=== PATIENT | male | born 1990 | race Caucasian/White ===

== ENCOUNTER 2018-07-16 14:41 | Observation (INO) | payer BC ==
--- NOTE | 2018-07-16 15:29 | Emergency Department Record ---
History of Present Illness - General Chief Complaint: Seizures Stated Complaint: SEIZURE Time Seen by Provider: 07/16/18 15:07 Source: Patient Mode of Arrival: Ambulatory Limitations: No limitations - History of Present Illness Initial Comments: The patient is here due to possibly having a seizure about an hour ago while playing video games. He was found by his sister making gurgling noises and drooling and with a blank stare in his video chair. He did not fall or injure himself. The patient also did not bite his tongue or wet himself. The patient then slowly became more conscious and when more alert had body aching and a frontal VÁZQUEZ. He has had similar episodes in the past with the last being January of 2015. His last episode was also while playing a video game. He is not on any medicine for it. Presently he denies any VÁZQUEZ or body aching. MD Complaint: Possible seizure Onset/Timin -: Minutes(s) Witnessed: Yes - by bystander Seizure History: Known seizure disorder Place: Home Associated Symptoms: Diaphoresis Treatments Prior to Arrival: None - Related Data Home Medications Medication Instructions Recorded Confirmed Last Taken No Home Med [NO HOME MEDS] 07/16/18 07/16/18 Unknown Allergies Allergy/AdvReac Type Severity Reaction Status Date / Time No Known Drug Allergies Allergy Verified 07/16/18 16:21 Travel Screening - Travel/Exposure Within Last 30 Days Have you traveled within the last 30 days?: No - Travel/Exposure Within Last Year Have you traveled outside the [place] in the last year?: No - Additonal Travel Details Have you been exposed to anyone with a communicable illness?: No - Travel Symptoms Symptom Screening: None Review of Systems Constitutional: Denies: Chills, Fever Eyes: Denies: Eye discharge ENT: Denies: Congestion Respiratory: Denies: Cough, Dyspnea Past Medical History - SOCIAL HISTORY Smoking Status: Never smoker Alcohol Use: Rare Drug Use: Rare - RESPIRATORY Hx Respiratory Disorders: No - CARDIOVASCULAR Hx Cardio Disorders: No - NEURO Hx Neuro Disorders: Yes Hx Seizures: Yes - GI Hx GI Disorders: No - Hx Genitourinary Disorders: No - ENDOCRINE Hx Endocrine Disorders: No - MUSCULOSKELETAL Hx Musculoskeletal Disorders: No - PSYCH Hx Psych Problems: Yes Hx Anxiety: Yes - HEMATOLOGY/ONCOLOGY Hx Hematology/Oncology Disorders: No Family Medical History Any Significant Family History?: No Physical Exam - General General Appearance: Alert, Oriented x3, Cooperative, No acute distress - Head Head exam: Atraumatic, Normocephalic, Normal inspection - Eye Eye exam: Normal appearance, PERRL, EOMI. negative: Conjunctival injection - ENT Throat exam: Normal inspection. negative: Tonsillar erythema, Tonsillar exudate - Neck Neck exam: Normal inspection, Full ROM. negative: Tenderness - Respiratory Respiratory exam: Normal lung sounds bilaterally. negative: Respiratory distress - Cardiovascular Cardiovascular Exam: Regular rate, Normal rhythm, Normal heart sounds - GI/Abdominal GI/Abdominal exam: Soft, Normal bowel sounds. negative: Tenderness - Extremities Extremities exam: Normal inspection, Full ROM, Normal capillary refill. negative: Tenderness - Back Back exam: Reports: Normal inspection - Neurological Neurological exam: Alert, Normal gait, Oriented X3. negative: Abnormal gait, Altered, Motor sensory deficit - Psychiatric Psychiatric exam: negative: Anxious, Depressed Course Vital Signs 07/16/18 14:47 Temperature 99.0 F Pulse Rate 106 H Respiratory 18 Rate Blood Pressure 151/104 Pulse Ox 97 - Reevaluation(s) Reevaluation #1: The patient is feeling well at this time. I did discuss the test results with him and the need for a short stay admission to [facility] for observation and he did agree. I then did discuss the case with Ann ([employer]) and she does accept the admission for Dr. Ricardo. 07/16/18 17:05 Medical Decision Making - Data Complexity MDM Data: Labs Ordered and/or Reviewed, X-Ray Ordered and/or Reviewed, EKG Ordered and/or Reviewed - Lab Data Result diagrams: 07/16/18 15:15 07/16/18 15:15 - EKG Data -: EKG Interpreted by Me (NSR at 91, nonspecific T changes inferior leads, borderline ST changes V3-6) - Radiology Data Radiology results: Report reviewed (Head CT: neg for any acute changes.) Disposition Disposition: Admit Clinical Impression: Seizure disorder Disposition: Still a Patient at [facility] Decision to Admit: Admit from ER Decision to Admit Date: 07/16/18 Decision to Admit Time: 17:06 Accepting Physician: Haleigh Time Discussed w/Accepting Physician: 17:06 Condition: (2) Stable Forms: Patient Portal Access Time of Disposition: 17:06 Quality - Quality Measures Quality Measures: N/A - Blood Pressure Screening View Details: Yes Does Patient Have Any of the Following: No Blood Pressure Classification: Hypertensive Reading Systolic Measurement: 151 Diastolic Measurement: 104 Screening for High Blood Pressure: < First Hypertensive BP, F/U Documented > [ G8950] First Hypertensive Follow-up Interventions: Referral to alternative/primary care provider.
[2018-07-16 15:35] LABS: BASO % 0.5 % (0-6); EOS % 9.8 % (0-6); GRAN % 55.8 % (47-80); HEMATOCRIT 48.9 % (42.0-52.0); HEMOGLOBIN 16.3 gm/dl (14.0-18.0); LYMPH % 24.8 % (16-45); MEAN CELL VOLUME 89.6 fl (81-97); MEAN CORPUSCULAR HEMOGLOBIN 29.9 pg (27-33); MEAN CORPUSCULAR HGB CONC 33.3 g/dl (32-36); MEAN PLATELET VOLUME 10.6 fl (7.4-10.4); MONO % 9.1 % (0-9); PLATELET COUNT 287 K/uL (130-400); RED BLOOD COUNT 5.46 M/uL (4.40-5.70); RED CELL DISTRIBUTION WIDTH 14.5 % (11.5-14.5); WHITE BLOOD COUNT W/O DIFF 9.5 K/uL (4.2-12.2)
[2018-07-16 15:54] LABS: BLOOD UREA NITROGEN 19 mg/dL (6-20); CREATININE 1.2 mg/dL (0.7-1.2); EST GLOMERULAR FILTRATION RATE > 60 mL/min
[2018-07-16 15:54] LABS: AMPHETAMINE SCREEN URINE NOT DETECTED; BARBITURATE SCREEN URINE NOT DETECTED; BENZODIAZEPINE SCREEN URINE NOT DETECTED; COCAINE SCREEN URINE NOT DETECTED; METHADONE SCREEN URINE NOT DETECTED; METHAMPHETAMINE SCREEN NOT DETECTED; OPIATE SCREEN URINE NOT DETECTED; OXYCODONE SCREEN URINE NOT DETECTED; PHENCYCLIDINE SCREEN URINE NOT DETECTED; PROPOXYPHENE SCREEN URINE NOT DETECTED; THC SCREEN URINE NOT DETECTED; TRICYCLIC ANTIDEPRESSANT SCRN NOT DETECTED
[2018-07-16 15:55] LABS: TOTAL PROTEIN 7.2 g/dL (6.6-8.7)
[2018-07-16 15:57] LABS: GLUCOSE,RANDOM 122 mg/dL (74-109)
[2018-07-16 16:00] LABS: ALB/GLOB RATIO 1.3 (1.1-1.8); ALKALINE PHOSPHATASE 61 U/L (40-129); ALT/SGPT 24 U/L (<41); AST/SGOT 26 U/L (10.0-50.0)
[2018-07-16] MEDS ORDERED: KETOROLAC 30 MG/ML VIAL IVP ONE (16:20)
[2018-07-16] MEDS ORDERED: 0.9 % SODIUM CHLORIDE 1,000 ML BAG IV ONE (16:20)
[2018-07-16] MEDS ORDERED: ACETAMINOPHEN 325 MG TAB PO PRN (17:25)
[2018-07-17 06:37] LABS: HEMATOCRIT 44.2 % (42.0-52.0); HEMOGLOBIN 14.7 gm/dl (14.0-18.0); MEAN CELL VOLUME 90.8 fl (81-97); MEAN CORPUSCULAR HEMOGLOBIN 30.2 pg (27-33); MEAN CORPUSCULAR HGB CONC 33.3 g/dl (32-36); MEAN PLATELET VOLUME 10.3 fl (7.4-10.4); PLATELET COUNT 236 K/uL (130-400); RED BLOOD COUNT 4.87 M/uL (4.40-5.70); RED CELL DISTRIBUTION WIDTH 14.6 % (11.5-14.5); WHITE BLOOD COUNT W/O DIFF 9.7 K/uL (4.2-12.2)
[2018-07-17 06:53] LABS: ALB/GLOB RATIO 1.3 (1.1-1.8); ALBUMIN 3.3 g/dL (4.0-5.0); ALKALINE PHOSPHATASE 51 U/L (40-129); ALT/SGPT 20 U/L (<41); AST/SGOT 25 U/L (10.0-50.0); BLOOD UREA NITROGEN 18 mg/dL (6-20); EST GLOMERULAR FILTRATION RATE > 60 mL/min; GLUCOSE,RANDOM 93 mg/dL (74-109); TOTAL PROTEIN 5.9 g/dL (6.6-8.7)
[2018-07-17 07:04] LABS: THYROID STIMULATING HORMONE 1.31 uIU/mL (0.270-4.20)
--- NOTE | 2018-07-17 07:42 | CT SCAN REPORT ---
EXAM: CT SCAN OF THE HEAD HISTORY: PATIENT HAS SEIZURES. TECHNIQUE: Serial axial CT scan of the head was performed at 2.5 mm intervals from the base of the skull to the apex without the use of intravenous contrast. No comparison CT's are available. FINDINGS: The ventricles, cisterns, and sulci appear within normal limits for size, shape and attenuation. There is no mass or mass effect. There is no intra or extraaxial fluid collection to suggest bleeding. The murillo and white differentiation appear within normal limits. Bone windows demonstrate no CT evidence of a fracture or dislocation of the skull. IMPRESSION: NO CT EVIDENCE OF AN ACUTE INTRACRANIAL PROCESS. JOB NUMBER: [id number] MTDD
--- NOTE | 2018-07-17 09:26 | History & Physical ---
History of Present Illness - Date of Service Date of Service for History & Physical: 07/17/18 - History of Present Illness Admitting Diagnosis: 1. Acute Seizure disorder History of Present Illness: Mr. Orlando is a 27 year-old male who presented to the ED yesterday due to possibly having a seizure about an hour previous while playing video games. He was found by his sister making gurgling noises and drooling and with a blank stare in his video game chair. He did not fall or injure himself. The patient also did not bite his tongue or wet himself. The patient then slowly became more conscious and when more alert had body aching and a frontal VÁZQUEZ. He has had a similar episode in the past- January of 2015. His last episode was also while playing a video game. He is not on any medicine for it. Presently he denies any VÁZQUEZ or body aching. His health history is otherwise negative. He does not have a PCP. In the ED, his vitals were: BP 159/101, HR 83, RR 16, T 98.3F, and 96% on room air. His EKG showed NSR at 91, nonspecific T changes inferior leads, borderline ST changes V3-6. Labs unremarkable. Negative head CT. He was admitted for observation, neuro checks q4h. 07/17/18: 0600: Pt. is presently resting in bed. He denies any pain/headache. His am labs are pending. Vitals have remained stable, BP slightly elevated, last BP 142/86 1500: Pt's BP remains elevated. Chest xray negative for acute process and cardiomegaly. Labs ordered to assess underlying cause of hypertension (hx of rhabdo with previous hospitalization from seizure in January 2015). Travel Screening - Travel/Exposure Within Last 30 Days Have you traveled within the last 30 days?: No - Travel/Exposure Within Last Year Have you traveled outside the [place] in the last year?: No - Additonal Travel Details Have you been exposed to anyone with a communicable illness?: No - Travel Symptoms Symptom Screening: None Review of Systems Constitutional: Denies: Chills, Fever Eyes: Denies: Eye discharge ENT: Denies: Congestion Respiratory: Denies: Cough, Dyspnea Past Medical History - SOCIAL HISTORY Smoking Status: Never smoker Alcohol Use: Rare Drug Use: None - RESPIRATORY Hx Respiratory Disorders: No - CARDIOVASCULAR Hx Cardio Disorders: No - NEURO Hx Neuro Disorders: Yes Hx Seizures: Yes - GI Hx GI Disorders: No - Hx Genitourinary Disorders: No - ENDOCRINE Hx Endocrine Disorders: No - MUSCULOSKELETAL Hx Musculoskeletal Disorders: No - PSYCH Hx Psych Problems: Yes Hx Anxiety: Yes - HEMATOLOGY/ONCOLOGY Hx Hematology/Oncology Disorders: No Family Medical History Any Significant Family History?: No Hx Anxiety: Grandparents Hx Cancer: Grandparents Hx Depression: Grandparents Hx Diabetes: Grandparents Hx HTN: Mother Hx Resp Disorders: Mother Hx Stroke: Grandparents H&P Meds/Allergies - Allergies Allergies: Allergies Allergy/AdvReac Type Severity Reaction Status Date / Time No Known Drug Allergies Allergy Verified 07/16/18 16:21 - Home Medications Home Medications Medication Instructions Recorded Confirmed Last Taken No Home Med [NO HOME MEDS] 07/16/18 07/16/18 Unknown - Active Medications Active Medications: Current Medications Acetaminophen (Tylenol 325mg) 650 mg PO Q4H PRN PRN Reason: PAIN - MILD(1-4)/FEVER Physical Exam - Vital Signs Vital Signs: Vital Signs - Last 24 Hrs Temp Pulse Pulse Pulse Resp BP BP 07/17/18 08:15 70 18 07/16/18 20:00 97.4 F L 73 18 142/86 07/16/18 18:33 83 16 07/16/18 17:45 98.3 F 83 16 159/101 07/16/18 14:47 99.0 F 106 H 18 151/104 Pulse Ox 07/17/18 08:15 07/16/18 20:00 97 07/16/18 18:33 07/16/18 17:45 96 07/16/18 14:47 97 - General General Appearance: Alert, Oriented x3, Cooperative, No acute distress Limitations: No limitations - Head Head exam: Atraumatic, Normocephalic, Normal inspection - Eye Eye exam: Normal appearance, PERRL, EOMI. negative: Conjunctival injection - ENT Throat exam: Normal inspection. negative: Tonsillar erythema, Tonsillar exudate - Neck Neck exam: Normal inspection, Full ROM. negative: Tenderness - Respiratory Respiratory exam: Normal lung sounds bilaterally. negative: Respiratory distress - Cardiovascular Cardiovascular Exam: Regular rate, Normal rhythm, Normal heart sounds - GI/Abdominal GI/Abdominal exam: Soft, Normal bowel sounds. negative: Tenderness - Extremities Extremities exam: Normal inspection, Full ROM, Normal capillary refill. negative: Tenderness - Back Back exam: Reports: Normal inspection - Neurological Neurological exam: Alert, Normal gait, Oriented X3. negative: Abnormal gait, Altered, Motor sensory deficit - Psychiatric Psychiatric exam: negative: Anxious, Depressed Results - Labs Result Diagrams: 07/17/18 06:09 07/17/18 06:09 Labs Last 24 Hours: Laboratory Results - last 24 hr 07/16/18 07/16/18 07/16/18 15:15 15:15 15:27 WBC 9.5 RBC 5.46 Hgb 16.3 Hct 48.9 MCV 89.6 MCH 29.9 MCHC 33.3 RDW 14.5 Plt Count 287 MPV 10.6 H Gran % 55.8 Neutrophils % Band Neutrophils % Lymphocytes % 24.8 Monocytes % 9.1 H Eosinophils % 9.8 H Basophils % 0.5 Lymphocytes Monocytes Basophils Eosinophil Count Sodium 139 Potassium 3.8 Chloride 98 Carbon Dioxide 22.0 Anion Gap 19.0 H BUN 19 Creatinine 1.2 Estimated GFR > 60 Random Glucose 122 H Hemoglobin A1c Calcium 10.0 Total Bilirubin 0.50 AST 26 ALT 24 Alkaline Phosphatase 61 Total Protein 7.2 Albumin 4.0 Globulin 3.2 Albumin/Globulin Ratio 1.3 TSH Urine Opiates Screen Not detected Ur Oxycodone Screen Not detected Urine Methadone Screen Not detected Ur Propoxyphene Screen Not detected Ur Barbituates Screen Not detected Ur Tricyclics Screen Not detected Ur Phencyclidine Scrn Not detected Ur Amphetamine Screen Not detected U Methamphetamines Scrn Not detected U Benzodiazepines Scrn Not detected Urine Cocaine Screen Not detected Urine Cannabis Screen Not detected 07/17/18 07/17/18 07/17/18 06:09 06:09 06:09 WBC 9.7 RBC 4.87 Hgb 14.7 Hct 44.2 MCV 90.8 MCH 30.2 MCHC 33.3 RDW 14.6 H Plt Count 236 MPV 10.3 Gran % Neutrophils % 55.0 Band Neutrophils % 0.0 Lymphocytes % Monocytes % Eosinophils % Not Reportable Basophils % Not Reportable Lymphocytes 23.0 Monocytes 11.0 H Basophils 0.0 Eosinophil Count 11.0 H Sodium 142 Potassium 3.8 Chloride 105 Carbon Dioxide 26.0 Anion Gap 11.0 BUN 18 Creatinine 1.0 Estimated GFR > 60 Random Glucose 93 Hemoglobin A1c 5.10 Calcium 9.2 Total Bilirubin 0.30 AST 25 ALT 20 Alkaline Phosphatase 51 Total Protein 5.9 L Albumin 3.3 L Globulin 2.6 Albumin/Globulin Ratio 1.3 TSH 1.31 Urine Opiates Screen Ur Oxycodone Screen Urine Methadone Screen Ur Propoxyphene Screen Ur Barbituates Screen Ur Tricyclics Screen Ur Phencyclidine Scrn Ur Amphetamine Screen U Methamphetamines Scrn U Benzodiazepines Scrn Urine Cocaine Screen Urine Cannabis Screen VTE H&P Assessment - Risk for VTE Risk for VTE: Yes Risk Level: Very Low Risk Assessment Date: 07/17/18 Risk Assessment Time: 09:25 VTE Orders Placed or Will Be Placed: No VTE Reason for No Prophylaxis: Not Indicated Plan - Detailed Diagnosis and Plan (1) Seizure disorder Current Visit: Yes Status: Acute Base Code: G40.909 - EPILEPSY, UNSP, NOT INTRACTABLE, WITHOUT STATUS EPILEPTICUS Comment: 07/17/18 -Unwitnessed seizure on 07/16/18, last seizure was January 2015 (admitted at [facility] and did not f/u with neurology) -Will continue neurochecks q4h, seizure precautions, labs ordered to assess for underlying cause of seizures and hypertension (2) Hypertension Current Visit: Yes Status: Acute Base Code: I10 - ESSENTIAL (PRIMARY) HYPERTENSION Comment: 07/17/18: -BP on admission 151/104, continues to be elevated (was 178/108 at 1200) -Pt. denies chest pain and headache -Labs ordered to assess for underlying cause, CXR negative -NSR on tele (3) Full code status Current Visit: Yes Status: Acute Base Code: Z78.9 - OTHER SPECIFIED HEALTH STATUS Comment: 07/17/18: -Pt. is a full code
[2018-07-17 15:30] LABS: CKMB 2.6 ng/mL (<6.73)
--- NOTE | 2018-07-17 17:42 | Discharge Summary ---
Providers Discharge Summary Date: 07/17/18 Date of admission: 07/16/18 17:18 Expected Date of Discharge: 07/17/18 Attending physician: EAGLE BRASWELL Primary care physician: FLOR AGUILAR M.D. Physical Exam - Vital Signs Vital Signs: Vital Signs - Last 24 Hrs Temp Pulse Pulse Resp BP Pulse Ox 07/17/18 15:17 98.1 F 77 18 154/105 100 07/17/18 12:00 97.8 F 66 18 178/108 96 07/17/18 08:15 70 18 07/17/18 08:00 98.5 F 67 18 150/96 07/16/18 20:00 97.4 F L 73 18 142/86 97 07/16/18 18:33 83 16 07/16/18 17:45 98.3 F 83 16 159/101 96 - General General Appearance: Alert, Oriented x3, Cooperative, No acute distress Limitations: No limitations - Head Head exam: Atraumatic, Normocephalic, Normal inspection - Eye Eye exam: Normal appearance, PERRL, EOMI. negative: Conjunctival injection - ENT Throat exam: Normal inspection. negative: Tonsillar erythema, Tonsillar exudate - Neck Neck exam: Normal inspection, Full ROM. negative: Tenderness - Respiratory Respiratory exam: Normal lung sounds bilaterally. negative: Respiratory distress - Cardiovascular Cardiovascular Exam: Regular rate, Normal rhythm, Normal heart sounds - GI/Abdominal GI/Abdominal exam: Soft, Normal bowel sounds. negative: Tenderness - Extremities Extremities exam: Normal inspection, Full ROM, Normal capillary refill. negative: Tenderness - Back Back exam: Reports: Normal inspection - Neurological Neurological exam: Alert, Normal gait, Oriented X3. negative: Abnormal gait, Altered, Motor sensory deficit - Psychiatric Psychiatric exam: negative: Anxious, Depressed Hospitalization - Hospitalization Admission Diagnosis: 1. Acute Seizure disorder - Problem List/Discharge Diagnosis (1) Seizure disorder Status: Acute Base Code: G40.909 - EPILEPSY, UNSP, NOT INTRACTABLE, WITHOUT STATUS EPILEPTICUS Comment: 07/17/18 -Unwitnessed seizure on 07/16/18, last seizure was January 2015 (admitted at [facility] and did not f/u with neurology) -labs stable -Will plan to d/c and f/u with neurology (2) Hypertension Status: Acute Base Code: I10 - ESSENTIAL (PRIMARY) HYPERTENSION Comment: : -BP on admission 151/104, continues to be elevated (was 178/108 at 1200) -Pt. denies chest pain and headache -Labs ordered to assess for underlying cause, CXR negative -Labs stable -NSR on tele (3) Full code status Status: Acute Base Code: Z78.9 - OTHER SPECIFIED HEALTH STATUS Comment: : -Pt. is a full code - Hospitalization Course Disposition: Home, Self-Care Hospital Course: Mr. Orlando is a 27 year-old male who presented to the ED yesterday due to possibly having a seizure about an hour previous while playing video games. He was found by his sister making gurgling noises and drooling and with a blank stare in his video game chair. He did not fall or injure himself. The patient also did not bite his tongue or wet himself. The patient then slowly became more conscious and when more alert had body aching and a frontal VÁZQUEZ. He has had a similar episode in the past- January of 2015. His last episode was also while playing a video game. He is not on any medicine for it. Presently he denies any VÁZQUEZ or body aching. His health history is otherwise negative. He does not have a PCP. In the ED, his vitals were: BP 159/101, HR 83, RR 16, T 98.3F, and 96% on room air. His EKG showed NSR at 91, nonspecific T changes inferior leads, borderline ST changes V3-6. Labs unremarkable. Negative head CT. He was admitted for observation, neuro checks q4h. 07/17/18: 0600: Pt. is presently resting in bed. He denies any pain/headache. His am labs are pending. Vitals have remained stable, BP slightly elevated, last BP 142/86 1500: Pt's BP remains elevated. Chest xray negative for acute process and cardiomegaly. Labs ordered to assess underlying cause of hypertension (hx of rhabdo with previous hospitalization from seizure in January 2015). ESR-3 CK-MB- 2.6 Myoglobin- 115 Creatinine kinase- 527 lactic acid- 1.0 procalcitonin 0.02 prolactin 5.2 ACTH- pending Pt. was informed of lab results. Explained that elevated creat kinase and myoglobin are likely result of muscle natalie with seizure and enzymes will clear with increased fluid intake (kindney function is normal). Pt. had hx of rhabdo with previous seizure hospitalization at [facility] in 2014. I spoke to Dr. Aguilar regarding treatment plan, will plan to discharge home today. Pt. was educated on his activity restrictions- no driving until seen by neurology. No video games, no swimming, no climbing on high surfaces. PCP: Dr. 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 EKG NOW Abnormal Labs: Abnormal Lab Results 07/16/18 07/16/18 07/17/18 Range/Units 15:15 15:15 06:09 RDW 14.6 H (11.5-14.5) % MPV 10.6 H (7.4-10.4) fl Monocytes % 9.1 H (0-9) % Eosinophils % 9.8 H (0-6) % Monocytes 11.0 H (0-9) % Eosinophil Count 11.0 H (0-6) % Anion Gap 19.0 H (7-16) Random Glucose 122 H (74-109) mg/dL Creatine Kinase (39-308) U/L Myoglobin (28-72) ng/mL Total Protein (6.6-8.7) g/dL Albumin (4.0-5.0) g/dL 07/17/18 07/17/18 07/17/18 Range/Units 06:09 14:34 14:34 RDW (11.5-14.5) % MPV (7.4-10.4) fl Monocytes % (0-9) % Eosinophils % (0-6) % Monocytes (0-9) % Eosinophil Count (0-6) % Anion Gap (7-16) Random Glucose (74-109) mg/dL Creatine Kinase 527 H (39-308) U/L Myoglobin 115.3 H (28-72) ng/mL Total Protein 5.9 L (6.6-8.7) g/dL Albumin 3.3 L (4.0-5.0) g/dL Condition at Discharge: (2) Stable VTE Discharge VTE Reason For No Overlap Therapy: Not Indicated Discharge Medications - Discharge Medications Home Medications: Ambulatory Orders Acetaminophen [Tylenol 325Mg] 650 mg PO Q4H PRN tablet 07/17/18 [Last Taken Unknown] Discharge Plan - Discharge Instructions Activity at Discharge: Other (See additional instructions) Diet at Discharge: Regular Diet Instructions: New-Onset Seizure in Adults (DC) Additional Instructions: New patient appointment with Dr. Flor Aguilar at [facility] on at 9:40AM. Enter [address] [facility], facing [facility]. Do not drive or play any video games until your appointment with neurology. Do not swim or climb on high surfaces. If symptoms occur- go to [facility] (they have neurology and capability to do EEG on-site) Quality Measures - Quality Measures Quality Measures: Documentation of Current Medications in Medical Record, Screening for High Blood Pressure and F/U Documented - Current Medications Quality Measure: Measure #130: Documentation of Current Medications Documentation of Current Medications: <Current Medications Documented/Reviewed> [G8427] - Blood Pressure Screening Quality Measure: Screening for High Blood Pressure and Follow-Up Documented Does Patient Have Any of the Following: No Blood Pressure Classification: Hypertensive Reading Systolic Measurement: 151 Diastolic Measurement: 104 Screening for High Blood Pressure: < First Hypertensive BP, F/U Documented > [ G8950] First Hypertensive Follow-up Interventions: Referral to alternative/primary care provider. - Elder Abuse Suspicion Index EASI Reference Information: Griselda GONZALEZ, Jarad C, Jensen D, Jodi Levine.Development and validation of a tool to assist physicians identification of elder abuse: The Elder Abuse Suspicion Index (EASI ). Journal of Elder Abuse and Neglect, 2008; 20 (3): 276-300.
--- NOTE | 2018-07-18 05:10 | RADIOLOGY REPORT ---
EXAM: CHEST, TWO VIEWS HISTORY: DIFFICULTY IN BREATHING. TECHNIQUE: Frontal and lateral views of the chest were performed. FINDINGS: The heart size is normal. No pulmonary vascular congestion. No infiltrate or pleural effusion. The osseous structures are normal. IMPRESSION: NEGATIVE CHEST EXAMINATION. JOB NUMBER: [id number] MTDD
== END 2018-07-17 18:10 | disposition home or self-care (01) ==
LOC: ER 14:41 → MEDSURG 17:18
PROVIDERS: ADMIT Internal Medicine; ATTEND Internal Medicine
DX: G40.909 Epilepsy, unspecified, not intractable, without status epilepticus (principal); I10 Essential (primary) hypertension; R51 Headache
CPT/HCPCS: 99285 ×2; 96374; 96361; 82550; 83605; 85025; 85651; 83874; 82024; 82553; 80053 ×2; 83036; 84443; 84146; 80305; 84145; 84484; 85027; 71046; 70450; 93005; 93010; G0378 ×2; J1885; 99220; J7030